=== PATIENT | female | born 1960 | race African-American/Black ===

== ENCOUNTER 2020-07-26 05:26 | Day surgery (SDC) | payer BC, OTHER ==
[2020-07-21 09:14] LABS: HEMATOCRIT 39.9 % (36.0-47.0); HEMOGLOBIN 13.9 g/dL (12.0-15.5); MEAN CORPUSCULAR HEMOGLOBIN 32.9 pg (27.0-33.4); MEAN CORPUSCULAR HGB CONC 34.8 g/dL (32.0-36.0); MEAN CORPUSCULAR VOLUME 95 fl (80-97); PLATELET COUNT 235 10^3/uL (150-450); RED BLOOD COUNT 4.21 10^6/uL (3.72-5.28); RED CELL DISTRIBUTION WIDTH 14.8 % (11.5-14.0); WHITE BLOOD COUNT 5.7 10^3/uL (4.0-10.5)
[~2020-07-26 05:26] MED LIST: CEFAZOLIN 1 GM/D5W RTU 1 GM/50 ML RTUPB IV ONE; CEFAZOLIN 1 GM/D5W RTU 1 GM/50 ML RTUPB IV PRN; LACTATED RINGERS 1000 ML IV PRN; LIDOCAINE 0.5% INJ-PF (5 MG/ML) 50 ML SDV SUBCUT PRN
[2020-07-26] MEDS ORDERED: FENTANYL CITRATE INJ/PF 100 MCG/2 ML AMPUL ONE (06:42)
[2020-07-26] MEDS ORDERED: MIDAZOLAM 2 MG/2 ML INJ ONE (06:42)
[2020-07-26] MEDS ORDERED: EPHEDRINE SULFATE INJ 50 MG/1 ML AMPULE ONE (06:43)
[2020-07-26] MEDS ORDERED: PROPOFOL INJ 200 MG/20 ML VIAL IV ONE (06:43)
[2020-07-26] MEDS ORDERED: ONDANSETRON HCL INJ/PF 4 MG/2 ML SDV ONE (06:43)
[2020-07-26] MEDS ORDERED: LIDOCAINE 1%/EPINEPHRINE INJ 20 ML VIAL ONE (07:08)
[2020-07-26] MEDS ORDERED: OXYCODONE-ACETAMINOPHEN 5-325 MG TABLET PO PRN ×3 (08:06→08:17)
[2020-07-26] MEDS ORDERED: MEPERIDINE HCL/PF INJ 25 MG/1 ML DISP.SYRIN IV PRN (08:06)
[2020-07-26] MEDS ORDERED: DIPHENHYDRAMINE HCL 50 MG/ML VIAL IV PRN (08:06)
[2020-07-26] MEDS ORDERED: PROMETHAZINE HCL INJ 25 MG/1 ML VIAL IV PRN ×2 (08:06)
[2020-07-26] MEDS ORDERED: MORPHINE SULFATE 10 MG/ML INJ IV PRN (08:06)
[2020-07-26] MEDS ORDERED: FENTANYL CITRATE INJ/PF 100 MCG/2 ML AMPUL IV PRN ×3 (08:06)
--- NOTE | 2020-07-26 08:10 | Operative Report ---
Operative Report DATE OF SURGERY: 07/26/20 PREOPERATIVE DIAGNOSIS: Large lipoma with a right upper arm POSTOPERATIVE DIAGNOSIS: Same OPERATION: Excision of large lipoma right upper arm SURGEON: JANES ASHER OCCUPATIONAL ANALYST: IVAN ANTHONY ANESTHESIA: LMAC TISSUE REMOVED OR ALTERED: Lipoma of the right upper arm COMPLICATIONS: None ESTIMATED BLOOD LOSS: Scant INTRAOPERATIVE FINDINGS: See below PROCEDURE: Patient seen in preop holding area right arm marked, then patient taken to the main operating room where LMAC anesthesia was induced. Right arm was prepped and draped in sterile fashion with Betadine. Surgical plan and surgical timeout were conducted. The right upper extremity was significant for longitudinal scar over the volar aspect of the right upper arm just proximal to the antecubital fossa. Underlying the scar was a large 6 to 8 cm soft tissue mass consistent with lipoma. The previous scar was anesthetized with 1% plain lidocaine, as well as the surrounding subcutaneous tissue. Approximately 5 cm longitudinal incision was made with 15 blade. The underlying lipoma was excised from the surrounding skin flaps, and deeper subcutaneous tissue in an uneventful fashion. The mass was shucked out and sent to pathology. The wound was checked for bleeders and there were found to be none. The wound was closed in layers with 3-0 and 4-0 Vicryl. Benzoin Steri-Strips applied, bulky 4 x 4 dressing and compression wrap applied. Patient tolerated procedure well, taken recovery in stable condition. The physician product safety technical assistant, Ms. Medina, provided assistance during this case by: Assisting retracting tissue, instillation of local anesthesia and closure of deep tissue and skin incision.
--- NOTE | 2020-07-26 08:17 | Discharge Summary ---
Discharge Summary (SDC) - Discharge Final Diagnosis: Right arm lipoma Date of Surgery: 07/26/20 Discharge Date: 07/26/20 Condition: Good Forms: ASU Anesthesia D/C Instruction, Discharge POC-Surgical Service Treatment or Instructions: WOUND CARE: Leave Won wrap in place for 24 hours. You may remove WON wrap, kerlix and gauze and shower in 48 hours. Leave steri strips in place, they will fall off on their own. Do not scrub incision. Do not go swimming, bath or soak arm for two weeks. If it is more comfortable, you may re cover steri strips with gauze and won wrap. PAIN MANAGEMENT: You may take Toradol 10mg one pill by mouth every six hours as needed for pain. Do not take additional NSAIDs with medication. You may take Tylenol as needed. FOLLOW UP: Follow up at [facility] in 7-10 days. Call clinic sooner with questions/concerns. Prescriptions: Ketorolac Tromethamine [Toradol 10 mg Tablet] 10 mg PO Q6HP PRN #20 tablet PRN Reason: Referrals: JANES CIFUENTES MD [ACTIVE STAFF] - Discharge Diet: As Tolerated Discharge Activity: Activity As Tolerated Report the Following to Your Physician Immediately: Increase in Pain, Fever over 101 Degrees, Unusual Bleeding, Redness, Swelling, Warmth, Increased Soreness, Drainage-Foul Smelling, Large Clots, Numbness
[2020-07-26 10:07] VITALS: BP 139/77
== END 2020-07-26 09:55 | disposition home or self-care (01) ==
LOC: OROUT 05:26
PROVIDERS: ATTEND Surgery
DX: D17.21 Benign lipomatous neoplasm of skin and subcutaneous tissue of right arm (principal); I10 Essential (primary) hypertension; Z79.899 Other long term (current) drug therapy
CPT/HCPCS: 36415 ×2; 84132; 85027; 87635; 88304 ×2; 24071; J2250; J0690; J3010; J3490; J2405; J2704; C9803